=== PATIENT | male | born 1950 | race Hispanic/Latino ===

== ENCOUNTER 2018-04-19 10:14 | Emergency (ER) | payer MEDICARE, OTHER ==
[2018-04-19 10:14] VITALS: BMI 30.4
[2018-04-19 10:38] VITALS: RESP 18
[2018-04-19] MEDS ORDERED: Naproxen 550 mg Tab PO STA (10:55)
[2018-04-19] MEDS ORDERED: Naproxen 550 mg Tab PO ONE (11:06)
[2018-04-19 11:57] VITALS: BP 169/90; PULSE 106; TEMP 98.2
[2018-04-19 11:59] VITALS: O2SAT 97
--- NOTE | 2018-04-19 11:59 | C.PDOC ---
History Of Present Illness 67 year old male presents to the ED for evaluation of right lower back pain that radiates to the right knee area for 5 days. Denies injury, direct trauma, urinary retention, loss of bowel or bladder control, sensory change in the leg, leg weakness, and any other associated symptoms. Time Seen by Provider: 04/19/18 10:37 Chief Complaint (Nursing): Back Pain History Per: Patient History/Exam Limitations: no limitations Onset/Duration Of Symptoms: Days Current Symptoms Are (Timing): Still Present Past Medical History Reviewed: Historical Data, Nursing Documentation, Vital Signs Vital Signs: Last Vital Signs Temp 99.5 F 04/19/18 10:32 Pulse 116 H 04/19/18 10:32 Resp 18 04/19/18 10:32 BP 176/95 H 04/19/18 10:32 Pulse Ox 97 04/19/18 10:32 - Medical History PMH: Benign Prostatic Hyperplasia, HTN, Hypercholesterolemia Denies: Chronic Kidney Disease - [facility] Procedures CYSTOSCOPY NEC (11/01/14) URETH STRICTURE RELEASE (11/01/14) Family History: States: Unknown Family Hx - Social History Hx Tobacco Use: No Hx Alcohol Use: No Hx Substance Use: No - Immunization History Hx Tetanus Toxoid Vaccination: No Hx Influenza Vaccination: No Hx Pneumococcal Vaccination: No Review Of Systems Constitutional: Negative for: Other (.) Genitourinary: Negative for: Other ((-) urinary retention. (-) loss of bowel or bladder control. ) Musculoskeletal: Positive for: Back Pain (right lower back.) Neurological: Negative for: Weakness, Numbness, Incoordination Physical Exam - Physical Exam Appears: Other (moderate pain. ) Skin: Normal Color, Warm, Dry Head: Atraumatic, Normacephalic Neck: Normal ROM, No Midline Cervical Tenderness, Supple Cardiovascular: Rhythm Regular, No Murmur, Other (tachycardic.) Gastrointestinal/Abdominal: Normal Exam, Soft, No Tenderness Back: No CVA Tenderness, Paraspinal Tenderness (L3-L5) Neurological/Psych: Oriented x3, Normal Speech, Normal Motor, Normal Sensation, Normal Reflexes Gait: Steady ED Course And Treatment O2 Sat by Pulse Oximetry: 97 (RA) Pulse Ox Interpretation: Normal Progress Note: Given Naproxen, Cyclobenzaprine and prednisone. Patient felt better after medication. Patient stable for discharge home. Prescribed Naproxen and prednisone. Disposition Counseled Patient/Family Regarding: Diagnosis, Need For Followup, Rx Given - Disposition Referrals: [facility] [Outside] Disposition: HOME/ ROUTINE Disposition Time: 12:00 Condition: STABLE Additional Instructions: FOLLOW UP WITH YOUR DOCTOR/CLINIC IN 1-2 DAYS USE MEDICATIONS DIRECTED RETURN TO ER IF SYMPTOMS WORSEN SEGUIR CON GALAVIZ MDICO / CLNICA EN 1-2 FAY UTILICE [facility]ICAM[facility]OS [facility]IM[facility] SE DIRIGE REGRESAR A ER SI LOS SNTOMAS SE INTENTAN Prescriptions: Cyclobenzaprine [Flexeril] 10 mg PO BID PRN #15 tab PRN Reason: Muscle Spasm Naproxen 375 mg PO BID PRN #20 tablet PRN Reason: pain predniSONE [predniSONE Tab] 40 mg PO DAILY #6 tab Instructions: Low Back Pain (DC), Sciatica (DC) Forms: [employer] (Faroese) Print Language: DANISH - POA Present On Arrival: None - Clinical Impression Clinical Impression: Low back pain, Sciatica - Scribe Statement The provider has reviewed the documentation as recorded by the Scribe (Nydia Riley) Provider Attestation: All medical record entries made by the Scribe were at my direction and personally dictated by me. I have reviewed the chart and agree that the record accurately reflects my personal performance of the history, physical exam, medical decision making, and the department course for this patient. I have also personally directed, reviewed, and agree with the discharge instructions and disposition.
== END 2018-04-19 12:15 | disposition home or self-care (01) ==
LOC: C.ER 10:14
DX: M54.40 Lumbago with sciatica, unspecified side (principal); I10 Essential (primary) hypertension; E78.00 Pure hypercholesterolemia, unspecified; N40.0 Benign prostatic hyperplasia without lower urinary tract symptoms